=== PATIENT | male | born 1970 | race American Indian/Alaskan Native ===

== ENCOUNTER 2017-09-13 20:34 | Emergency (ER) | payer SELFPAY ==
[2017-09-13 22:22] LABS: Hematocrit 51.2 % (35.5-45.6); Mean Corpuscular HGB Conc 33 % (32-34); Mean Corpuscular Hemoglobin 29 pg (28-32); Mean Corpuscular Volume 87 fl (84-94); Platelet Count 247 K/mm3 (140-440); Red Cell Distribution Width 14.7 % (13.2-15.2)
--- NOTE | 2017-09-13 22:24 | Cat Scan Report ---
FINAL REPORT PROCEDURE: CT HEAD/BRAIN WO CON TECHNIQUE: Computerized tomography of the head was performed without contrast material. HISTORY: drowsy,headache,cocaine abuse,htn COMPARISON: No prior studies are available for comparison. FINDINGS: Skull and scalp: Normal. Paranasal sinuses: Normal. Ventricles and subarachnoid spaces: Increased density hemorrhage in the right lateral ventricle and 3rd ventricle.. Cerebrum: There is 3.7 cm right basal ganglia hemorrhage with surrounding edema. There is subfalcine herniation of 0.4 cm. There is periventricular deep white matter diminished densities. Cerebellum and brainstem: No evidence of hemorrhage, acute infarction or mass. Vasculature: Normal. Comments: None. IMPRESSION: Right basal ganglia hemorrhage with intraventricular extension.
--- NOTE | 2017-09-13 22:34 | Emergency Department Report ---
HPI - General Chief Complaint: Headache Time Seen by Provider: 09/13/17 22:25 - HPI HPI: This patient was just brought back to room 23 (1025P) and brought to my attention as he had a CT scan of the head done that came back showing a right basal ganglia bleed with extension into the ventricle. Patient says that he has been dealing with a generalized headache since this morning. Physical examination, the patient appears intoxicated but also appears to have some left- sided weakness. He then said "this is why I came, I have no strength." The patient presents with very elevated blood pressure and admits to history of hypertension and medication noncompliance. He also admits to alcohol abuse today as well as cocaine abuse. He came in by ambulance but did not receive any treatments in route. ED Past Medical Hx - Past Medical History Hx Hypertension: Yes Additional medical history: drug abuse - Social History Smoking Status: Current Every Day Smoker Substance Use Type: Alcohol, Cocaine ED Review of Systems ROS: Stated complaint: HEADACHE/DRUG USE Other details as noted in HPI Comment: All other systems reviewed and negative Constitutional: denies: chills, fever Eyes: denies: eye pain, eye discharge, vision change ENT: denies: ear pain, throat pain Respiratory: denies: cough, shortness of breath, wheezing Cardiovascular: denies: chest pain, palpitations Gastrointestinal: denies: abdominal pain, nausea, diarrhea Genitourinary: denies: urgency, dysuria Musculoskeletal: denies: back pain, joint swelling, arthralgia Skin: denies: rash, lesions Neurological: headache, weakness Physical Exam - Physical Exam Vital Signs: Vital Signs 09/13/17 21:21 Temperature 98 F Pulse Rate 102 H Respiratory 18 Rate Blood Pressure 220/149 O2 Sat by Pulse 97 Oximetry Physical Exam: GENERAL: Patient is ill-appearing. HENT: Normocephalic. Atraumatic. Patient has moist mucous membranes. EYES: Extraocular motions are intact. Pupils equal reactive to light bilaterally. NECK: Supple. Trachea is midline. CHEST/LUNGS: Clear to auscultation. There is no respiratory distress noted. HEART/CARDIOVASCULAR: Regular. There is moderate tachycardia. There is no murmur. ABDOMEN: Abdomen is soft, nontender. Patient has normal bowel sounds. There is no abdominal distention. SKIN: Skin is warm and dry. NEURO: Patient is awake and oriented, AAO x 3, but appears intoxicated versus groggy. There is a left-sided nasolabial fold paresis. Patient has left upper and lower extremity weakness to the point of left-sided hemiplegia. MUSCULOSKELETAL: There is no tenderness or deformity. There is no evidence of acute injury. ED Course Vital Signs 09/13/17 21:21 Temperature 98 F Pulse Rate 102 H Respiratory 18 Rate Blood Pressure 220/149 O2 Sat by Pulse 97 Oximetry - Reevaluation(s) Reevaluation #1: 09/13/17 22:34 NIH Stroke Scale/Score (NIHSS) from [employer] on 09/13/2017 All calculations should be rechecked by clinician prior to use RESULT SUMMARY: 6 points NIH Stroke Scale INPUTS: 1A: Level of consciousness > 0 = Alert; keenly responsive 1B: Ask month and age > 0 = Both questions right 1C: 'Blink eyes' & 'squeeze hands' > 0 = Performs both tasks 2: Horizontal extraocular movements > 0 = Normal 3: Visual montelongo > 0 = No visual loss 4: Facial palsy > 2 = Partial paralysis (lower face) 5A: Left arm motor drift > 2 = Drift, hits bed 5B: Right arm motor drift > 0 = No drift for 10 seconds 6A: Left leg motor drift > 2 = Drift, hits bed 6B: Right leg motor drift > 0 = No drift for 5 seconds 7: Limb Ataxia > 0 = No ataxia 8: Sensation > 0 = Normal; no sensory loss 9: Language/aphasia > 0 = Normal; no aphasia 10: Dysarthria > 0 = Normal 11: Extinction/inattention > 0 = No abnormality Reevaluation #2: 09/13/17 23:31 The patient was reevaluated multiple times but during the most recent reevaluation the patient was becoming lethargic with some snoring respirations and the decision was made to intubate. - Consultations Consultation #1: A phone call has been placed to [facility] for possible transfer. Awaiting a phone call back from the stroke team. 09/13/17 22:36 09/13/17 22:58 Patient accepted for transfer by the stroke attending, Dr. Garcia. - Intubation Time Out Performed: Yes Sedative: Etomidate Mg Given: 20 Paralytic: Rocuronium Mg Given: 100 Laryngoscope: Jessica Size: 4 ET Tube Size: 7.5 Tube Secured Depth (cm): 24 Tube Secured Location: lips Tube Placement Confirmation: visualized tube passing t, equal breath sounds bilat, confirmation by capnometr Patient Tolerated Procedure: well Intubation Complications: none ED Medical Decision Making - Lab Data Result diagrams: 09/13/17 22:00 09/13/17 22:00 - EKG Data -: EKG Interpreted by Me EKG shows normal: sinus rhythm, axis, intervals, QRS complexes, ST-T waves ( isolated T-wave inversion to lead aVL, mild lateral ST depression) Rate: tachycardia (104 bpm) - EKG Data When compared to previous EKG there are: previous EKG unavailable Interpretation: other (sinus tachycardia, isolated T-wave inversion to aVL, mild ST depression to the lateral leads. No ST elevation AR) - Radiology Data Radiology results: report reviewed, image reviewed interpreted by me: Chest x-ray shows the ET tube is just above the heather. No obvious pneumonia or pleural effusions. No pneumothorax. PROCEDURE: CT HEAD/BRAIN WO CON TECHNIQUE: Computerized tomography of the head was performed without contrast material. HISTORY: drowsy,headache,cocaine abuse,htn COMPARISON: No prior studies are available for comparison. FINDINGS: Skull and scalp: Normal. Paranasal sinuses: Normal. Ventricles and subarachnoid spaces: Increased density hemorrhage in the right lateral ventricle and 3rd ventricle.. Cerebrum: There is 3.7 cm right basal ganglia hemorrhage with surrounding edema. There is subfalcine herniation of 0.4 cm. There is periventricular deep white matter diminished densities. Cerebellum and brainstem: No evidence of hemorrhage, acute infarction or mass. Vasculature: Normal. Comments: None. IMPRESSION: Right basal ganglia hemorrhage with intraventricular extension. Transcribed By: NYA Dictated By: JENNY BOTELLO MD Electronically Authenticated By: JENNY BOTELLO MD Signed Date/Time: 09/13/17 7817 - Medical Decision Making Patient came through triage with complaint of a headache and admitted to some alcohol and cocaine use this afternoon. A CT scan of the head was ordered per triage came back showing a right basal ganglia bleed into the ventricle. On examination, the patient had left-sided facial asymmetry and left-sided upper and lower extremity weakness. All this together appears consistent with hemorrhagic stroke. There is no signs of any trauma to the head and with the patient's hypertensive crisis, medication noncompliance for hypertension, and his use of cocaine, it is most likely secondary to his hypertensive issues. The patient was accepted to [facility] to go to the ICU by the stroke attending. Just prior to transportation arriving, the patient started having decreased mentation and snoring respirations so the patient was intubated. He was given a gram of Keppra for seizure prophylaxis. He was placed on a nicardipine drip and after intubation, the patient's blood pressure leveled out at about systolic 130 to 140. All the labs, notes and imaging were sent along with the patient to [facility]. - Differential Diagnosis alcohol and/or cocaine intoxication, hemorrhagic CVA, ischemic CVA Critical Care Time: Yes Critical care time in (mins) excluding proc time.: 35 Critical care attestation.: If time is entered above; I have spent that time in minutes in the direct care of this critically ill patient, excluding procedure time. Critical care time spent on this patient during his initial evaluation, multiple re-evaluations, ordering and interpretation of labs, discussion with the radiologist, discussion with the [place] stroke attending, titration of his nicardipine. This does not include time spent doing the intubation procedure. Critical Care Time: 35 minutes ED Disposition Clinical Impression: Basal ganglia hemorrhage, Hemorrhagic cerebrovascular accident (CVA), Hypertensive crisis, Cocaine abuse Disposition: DC/TX-70 ANOTHER TYPE HLTHCARE Is pt being admited?: No Condition: Critical Referrals: LORA FITCH MD [Primary Care Provider] - 3-5 Days Time of Disposition: 23:34
[2017-09-13 22:42] LABS: BUN/Creatinine Ratio 21; Blood Urea Nitrogen 19 mg/dL (9-20); Calcium 9.9 mg/dL (8.4-10.2); Hemolysis Index 13
[2017-09-13] MEDS ORDERED: CARDENE 50 MG in NACL 0.9% 250ML 230 ML IV SCH (23:00)
[2017-09-13] MEDS ORDERED: KEPPRA 1,000 MG/NS 0.75% 100ML 1,000 MG/100 ML BAG IV ONE (23:10)
[2017-09-13] MEDS: KEPPRA 1,000 MG/NS 0.75% 100ML 1,000 MG/100 ML BAG IV SCH ×2 (23:17→23:23)
[2017-09-13 23:31] VITALS: BP 134/82
[2017-09-13] MEDS ORDERED: NACL 0.9% 1000 ML 1,000 ML ONE (23:36)
--- NOTE | 2017-09-14 00:01 | XRay Report ---
FINAL REPORT PROCEDURE: XR CHEST 1V AP TECHNIQUE: Chest radiograph anteroposterior view. CPT 77854 HISTORY: post ETT placement' COMPARISON: No prior studies are available for comparison. FINDINGS: Heart: Normal. Mediastinum/Vessels: Normal. Lungs/Pleural space: Left lower lung atelectasis.. Bony thorax: No acute osseous abnormality. Life support devices: Endotracheal tube at the right main bronchus. IMPRESSION: Endotracheal tube at the right main bronchus should be pulled back 2-3 cm.
[2017-09-14] MEDS ORDERED: QUELICIN ONE (13:45)
[2017-09-14] MEDS ORDERED: AMIDATE IV ONE (13:45)
[2017-09-14] MEDS ORDERED: ZEMURON IV ONE (13:45)
== END 2017-09-14 00:06 | disposition other institution (70) ==
LOC: ED 20:34
DX: I62.9 Nontraumatic intracranial hemorrhage, unspecified (principal); I16.9 Hypertensive crisis, unspecified; F14.10 Cocaine abuse, uncomplicated; I10 Essential (primary) hypertension; F17.200 Nicotine dependence, unspecified, uncomplicated
CPT/HCPCS: 31500; 36415; 70450; 71045; 80048; 84484; 85027; 93005; 93010; 96365; 96366; 99291; G0480; J0330; J1953; J7030; J7050; 80320